=== PATIENT | female | born 1980 | race African-American/Black ===

== ENCOUNTER 2019-12-19 17:41 | Emergency (ER) | payer SELFPAY ==
[2019-12-19] MEDS ORDERED: dexAMETHasone 20 MG/5 ML VIAL IV ONE (19:30)
[2019-12-19] MEDS ORDERED: ASPIRIN 325 MG TAB PO ONE (19:30)
[2019-12-19] MEDS ORDERED: SODIUM CHLORIDE 0.9% 1000 ML 1,000 ML IV ONE (19:30)
[2019-12-19] MEDS ORDERED: BUTALB/ACETAMINOPHEN/CAFFEINE TAB PO ONE (19:47)
[2019-12-19 20:21] LABS: Basophils % (Auto) 0.6 % (0.0-1.8); Eosinophils # (Auto) 0.2 K/mm3 (0.0-0.4); Eosinophils % (Auto) 2.7 % (0.0-4.3); Hematocrit 35.3 % (30.3-42.9); Hemoglobin 12.1 gm/dl (10.1-14.3); Lymphocytes # (Auto) 2.3 K/mm3 (1.2-5.4); Lymphocytes % (Auto) 29.7 % (13.4-35.0); Mean Corpuscular HGB Conc 34 % (30-34); Mean Corpuscular Volume 86 fl (79-97); Monocytes # (Auto) 0.5 K/mm3 (0.0-0.8); Monocytes % (Auto) 6.6 % (0.0-7.3); Platelet Count 229 K/mm3 (140-440); Red Blood Count 4.12 M/mm3 (3.65-5.03); Red Cell Distribution Width 12.6 % (13.2-15.2)
[2019-12-19 20:38] LABS: Alanine Aminotransferase 17 units/L (7-56); Albumin 4.6 g/dL (3.9-5); BUN/Creatinine Ratio 19; Blood Urea Nitrogen 13 mg/dL (7-17); Calcium 9.5 mg/dL (8.4-10.2); Hemolysis Index 2
--- NOTE | 2019-12-19 21:04 | Cat Scan Report ---
CT head/brain wo con INDICATION: headache. TECHNIQUE: Routine CT head without contrast. All CT scans at this location are performed using CT dos e reduction for ALARA by means of automated exposure control. COMPARISON: None. FINDINGS: BRAIN / INTRACRANIAL CONTENTS: No acute hemorrhage, mass effect, midline shift, or hydrocephalus. No appreciable acute large territorial or lacunar infarct. No chronic infarct or focal atrophy. Normal b rain volume and ventricular/sulcal size for age. ORBITS: No significant abnormality of visualized orbits. SINUSES / MASTOIDS: No significant abnormality of visualized sinuses and mastoid air cells. ADDITIONAL FINDINGS: None. IMPRESSION: 1. No acute intracranial abnormality. Signer Name: Kenneth Stovall MD Signed: 12/19/2019 8:59 PM Workstation Name: [id number]
[2019-12-19 21:24] LABS: HCG Qualitative,Urine Negative (Negative)
[2019-12-19 21:26] LABS: Bilirubin,Urine NEG (Negative); Blood,Urine LG (Negative); Color,Urine Straw (Yellow); Protein,Urine <15 mg/dL mg/dL (Negative); Urobilinogen,Urine < 2.0 mg/dL (<2.0); WBC,Urine < 1.0 /HPF (0.0-6.0)
[2019-12-19 21:28] LABS: RBC,Urine > 182.0 /HPF (0.0-6.0)
--- NOTE | 2019-12-19 21:29 | XRay Report ---
CHEST 2 VIEWS INDICATION / CLINICAL INFORMATION: chest pain. COMPARISON: None available. FINDINGS: SUPPORT DEVICES: None. HEART / MEDIASTINUM: No significant abnormality. LUNGS / PLEURA: Mild pulmonary vascular congestion. No overt interstitial pulmonary edema. The lungs are otherwise clear. No pneumothorax. ADDITIONAL FINDINGS: No significant additional findings. IMPRESSION: 1. Mild pulmonary vascular congestion. No other significant finding. Signer Name: Reyna Rosenthal MD Signed: 12/19/2019 9:24 PM Workstation Name: [id number]
[2019-12-19] MEDS ORDERED: POTASSIUM CHLORIDE ER 20 MEQ TAB PO ONE (21:50)
[2019-12-19] MEDS ORDERED: KETOROLAC 30 MG/1 ML INJ IV ONE (21:50)
[2019-12-20] MEDS ORDERED: CYCLOBENZAPRINE 10 MG TAB PO ONE (00:23)
[2019-12-20] MEDS ORDERED: hydrALAZINE 20 MG/1 ML INJ IV ONE (00:23)
[2019-12-20 01:34] VITALS: BP 147/88
--- NOTE | 2019-12-20 02:14 | Emergency Department Report ---
ED Neck Pain/Injury HPI - General Chief Complaint: Neck Pain/Injury Stated Complaint: TINGLE/NECK PAIN/RT EYE Mode of arrival: Ambulatory Limitations: Language Barrier - History of Present Illness Initial Comments: Patient is a 39 yo female with a h/o poorly uncontrolled HTN who presents to the ED with c/o acute onset persistent left lateral neck pain that radiates to the left arm, left shoulder, posterior headache and left chest wall for the last 3 days with persistently elevated blood pressure. Patient states that she was prescribed blood pressure medication that she could not remember and that she does not take the medication because it makes her feel nauseous and lightheaded. Patient states that she stopped taking these medications about 6 months or more ago and ever since her blood pressure has not been well controlled. Patient states that the pain in her neck is constant, sharp and radiates to the left arm. Patient also complains of shortness of breath on exertion but denies dizziness, cough, nausea and vomiting, abdominal pain, syncope, palpitations, change in vision, traumatic injury or heavy lifting, fall, hematochezia, vaginal bleeding, hematemesis, fever and chills. MD Complaint: neck pain, upper back pain, other (headache, left arm pain; headache, chest pain; elevated BP) -: Sudden, days(s) (4) Place: home Radiation: left lateral, head, left shoulder, chest, left upper extremity (left shoulder) Severity: severe, constant Severity scale (0 -10): 8 Quality: sharp, aching Consistency: constant Improves With: none Worsens With: movement of extremity, movement of neck Context: unknown Associated Symptoms: headache, numbness, tingling. denies: weakness, vertigo, difficulty walking, swollen glands, difficulty swallowing, nausea, vomiting Treatments Prior to Arrival: none - Related Data Previous Rx's Medication Instructions Recorded Last Taken Type Naproxen 500 mg PO Q12H PRN #30 tablet 12/20/19 Unknown Rx Spironolactone [Aldactone] 25 mg PO QDAY #30 tablet 12/20/19 Unknown Rx amLODIPine 10 mg PO DAILY #30 tab 12/20/19 Unknown Rx hydrOXYzine PAMOATE [Vistaril] 50 mg PO QHS PRN #30 capsule 12/20/19 Unknown Rx predniSONE [Deltasone] 40 mg PO QDAY #12 tab 12/20/19 Unknown Rx tiZANidine [Zanaflex 4mg TAB] 4 mg PO Q8H PRN #24 tablet 12/20/19 Unknown Rx Allergies Allergy/AdvReac Type Severity Reaction Status Date / Time No Known Allergies Allergy Unverified 12/19/19 17:42 ED Review of Systems ROS: Stated complaint: TINGLE/NECK PAIN/RT EYE Other details as noted in HPI Constitutional: denies: chills, fever Eyes: denies: eye pain, eye discharge, vision change ENT: denies: ear pain, throat pain, congestion Respiratory: shortness of breath. denies: cough, wheezing Cardiovascular: chest pain (left-sided chest pain), dyspnea on exertion. denies: palpitations, syncope Endocrine: no symptoms reported Gastrointestinal: denies: abdominal pain, nausea, vomiting, diarrhea Genitourinary: denies: urgency, dysuria, discharge Musculoskeletal: arthralgia (neck pain, left shoulder and arm pain), myalgia. denies: back pain, joint swelling Skin: denies: rash, lesions Neurological: headache. denies: weakness, paresthesias, confusion, abnormal gait, vertigo Psychiatric: anxiety. denies: depression Hematological/Lymphatic: denies: easy bleeding, easy bruising ED Past Medical Hx - Past Medical History Previous Medical History?: No - Surgical History Past Surgical History?: No - Social History Smoking Status: Never Smoker Substance Use Type: None - Medications Home Medications: Home Medications Medication Instructions Recorded Confirmed Last Taken Type Naproxen 500 mg PO Q12H PRN #30 tablet 12/20/19 Unknown Rx Spironolactone [Aldactone] 25 mg PO QDAY #30 tablet 12/20/19 Unknown Rx amLODIPine 10 mg PO DAILY #30 tab 12/20/19 Unknown Rx hydrOXYzine PAMOATE [Vistaril] 50 mg PO QHS PRN #30 capsule 12/20/19 Unknown Rx predniSONE [Deltasone] 40 mg PO QDAY #12 tab 12/20/19 Unknown Rx tiZANidine [Zanaflex 4mg TAB] 4 mg PO Q8H PRN #24 tablet 12/20/19 Unknown Rx ED Physical Exam - General Limitations: Language Barrier General appearance: alert, in no apparent distress - Head Head exam: Present: atraumatic, normocephalic, normal inspection - Eye Eye exam: Present: normal appearance, PERRL, EOMI Pupils: Present: normal accommodation - ENT ENT exam: Present: normal exam, normal orophraynx, mucous membranes moist, TM's normal bilaterally, normal external ear exam - Neck Neck exam: Present: normal inspection, tenderness (Palpable left lateral c ervical tenderness with limited range of motion due to pain). Absent: meningismus, full ROM, lymphadenopathy, thyromegaly - Respiratory Respiratory exam: Present: normal lung sounds bilaterally, chest wall tenderness (Palpable reproducible left chest wall tenderness). Absent: respiratory distress, wheezes, rales, rhonchi, accessory muscle use, decreased breath sounds - Cardiovascular Cardiovascular Exam: Present: regular rate, normal rhythm, normal heart sounds. Absent: systolic murmur, diastolic murmur, rubs, gallop - GI/Abdominal GI/Abdominal exam: Present: soft, normal bowel sounds. Absent: tenderness, hyperactive bowel sounds - Extremities Exam Extremities exam: Present: normal inspection, full ROM, tenderness (Palpable left shoulder tenderness), normal capillary refill - Back Exam Back exam: Present: normal inspection, full ROM. Absent: tenderness, CVA tenderness (R), CVA tenderness (L), muscle spasm, paraspinal tenderness, vertebral tenderness - Neurological Exam Neurological exam: Present: alert, oriented X3, CN II-XII intact, normal gait, reflexes normal - Psychiatric Psychiatric exam: Present: normal affect, normal mood, anxious - Skin Skin exam: Present: warm, dry, intact, normal color. Absent: rash ED Course Vital Signs 12/19/19 12/19/19 12/19/19 17:49 20:15 21:15 Temperature 98 F Pulse Rate 71 Respiratory 18 15 18 Rate Blood Pressure 191/115 Blood Pressure [Right] O2 Sat by Pulse 100 Oximetry 12/19/19 12/19/19 12/20/19 23:08 23:17 00:44 Temperature 97.9 F Pulse Rate 57 L 65 Respiratory 18 16 Rate Blood Pressure 173/89 Blood Pressure 189/95 [Right] O2 Sat by Pulse 99 Oximetry 12/20/19 01:30 Temperature Pulse Rate 89 Respiratory 18 Rate Blood Pressure Blood Pressure 147/88 [Right] O2 Sat by Pulse 98 Oximetry ED Medical Decision Making - Lab Data Result diagrams: 12/19/19 19:46 12/19/19 19:46 - EKG Data EKG shows normal: sinus rhythm Rate: normal - EKG Data Interpretation: normal EKG 12/20/19 02:25 EKG shows normal sinus rhythm with ventricular rate of [address] or T wave abnormalities. - Radiology Data Radiology results: report reviewed, image reviewed Findings [facility] [address] [place] [address] XRay Report Signed Patient: ABUNDIO MICHAEL MR#: [id number] : 1980 Acct:[id number] Age/Sex: 39 / F ADM Date: 12/19/19 Loc: ED Attending Dr: Ordering Physician: OLIVA SHEN Date of Service: 12/19/19 Procedure(s): XR chest routine 2V Accession Number(s): [id number] cc: OLIVA SHEN Fluoro Time In Minutes: CHEST 2 VIEWS INDICATION / CLINICAL INFORMATION: chest pain. COMPARISON: None available. FINDINGS: SUPPORT DEVICES: None. HEART / MEDIASTINUM: No significant abnormality. LUNGS / PLEURA: Mild pulmonary vascular congestion. No overt interstitial pulmonary edema. The lungs are otherwise clear. No pneumothorax. ADDITIONAL FINDINGS: No significant additional findings. IMPRESSION: 1. Mild pulmonary vascular congestion. No other significant finding. Signer Name: Reyna Rosenthal MD Signed: 12/19/2019 9:24 PM Workstation Name: [id number] Transcribed By: JR Dictated By: Reyna Rosenthal MD Electronically Authenticated By: Reyna Rosenthal MD Signed Date/Time: 12/19/192123 DD/ 22 TD/TT: Findings [facility] [address] [place] [address] Cat Scan Report Signed Patient: ABUNDIO MICHAEL MR#: [id number] : 1980 Acct:[id number] Age/Sex: 39 / F ADM Date: 12/19/19 Loc: ED Attending Dr: Ordering Physician: OLIVA SHEN Date of Service: 12/19/19 Procedure(s): CT head/brain wo con Accession Number(s): [id number] cc: OLIVA SHEN CT head/brain wo con INDICATION: headache. TECHNIQUE: Routine CT head without contrast. All CT scans at this location are performed using CT dose reduction for ALARA by means of automated exposure control. COMPARISON: None. FINDINGS: BRAIN / INTRACRANIAL CONTENTS: No acute hemorrhage, mass effect, midline shift, or hydrocephalus. No appreciable acute large territorial or lacunar infarct. No chronic infarct or focal atrophy. Normal brain volume and ventricular/sulcal size for age. ORBITS: No significant abnormality of visualized orbits. SINUSES / MASTOIDS: No significant abnormality of visualized sinuses and mastoid air cells. ADDITIONAL FINDINGS: None. IMPRESSION: 1. No acute intracranial abnormality. Signer Name: Kenneth Stovall MD Signed: 12/19/2019 8:59 PM Workstation Name: [id number] Transcribed By: YUMIKO Dictated By: Kenneth Stovall MD Electronically Authenticated By: Kenneth Stovall MD Signed Date/Time: 12/19/192058 DD/ 57 TD/TT: - Medical Decision Making This is a 39-year-old female with a history of hypertension who presented to the ED with persistent severe headache, left lateral neck pain that radiates to the left arm and left chest wall with numbness and tingling of left arm with shortness of breath and elevated blood pressure. In the ED, patient is alert and oriented x3 and is not in any distress but hypertensive in triage. Lab test results were reviewed and are all nonactionable including initial and repeat troponin level except BNP of 1256 and mild hypokalemia of 3.4 mmol/L. Urinalysis is unremarkable and head CT scan without contrast shows no acute intracranial abnormalities or hemorrhage. Chest x-ray shows mild pulmonary vascular congestion. No overt interstitial pulmonary edema. The lungs are otherwise clear. No pneumothorax. Patient was treated in the ED for pain, and also treated for hypertension. On reevaluation, patient's blood pressure normalized after the administration of hydralazine. Patient neck pain and left arm pain also significantly improved. Patient was discharged home on pain medications, muscle relaxants as well as blood pressure medication that includes a diuretic. Patient was referred to the kitchen steward, Dr. Felipe who is on-call for further evaluation and follow-up on her BNP. Patient was also referred to the primary care physician for further evaluation. Patient was advised to return to the ED immediately if symptoms get worse. - Differential Diagnosis Cervical radiculopathy; CHF; CAD; Anxiety; Uncontrolled HTN; Muscle strain Critical care attestation.: If time is entered above; I have spent that time in minutes in the direct care of this critically ill patient, excluding procedure time. ED Disposition Clinical Impression: Pulmonary edema, acute, Uncontrolled stage 2 hypertension, Left cervical radiculopathy, Anxiety as acute reaction to exceptional stress Muscle strain of left upper extremity Qualifiers: Encounter type: initial encounter Qualified Code(s): S46.912A - Strain of unspecified muscle, fascia and tendon at shoulder and upper arm level, left arm, initial encounter Disposition: - TO HOME OR SELFCARE Is pt being admited?: No Does the pt Need Aspirin: No Condition: Stable Instructions: Pulmonary Edema (ED), Hypertension (ED), Muscle Strain (ED), Cervical Radiculopathy (ED) Additional Instructions: [facility] con alimentos, ida muchos lquidos y deepthi un seguimiento con dugan mdico de atencin primaria segn lo recomendado, tambin deepthi un seguimiento con el cardilogo para sly evaluacin adicional de dugan edema pulmonar. Regrese al servicio de urgencias de inmediato si los sntomas empeoran. Prescriptions: hydrOXYzine PAMOATE [Vistaril] 50 mg PO QHS PRN #30 capsule PRN Reason: Anxiety Spironolactone [Aldactone] 25 mg PO QDAY #30 tablet amLODIPine 10 mg PO DAILY #30 tab predniSONE [Deltasone] 40 mg PO QDAY #12 tab Naproxen 500 mg PO Q12H PRN #30 tablet PRN Reason: Pain , Severe (7-10) tiZANidine [Zanaflex 4mg TAB] 4 mg PO Q8H PRN #24 tablet PRN Reason: Muscle Spasm Referrals: TIGIST PENN MD [Staff Physician] - 7-10 days ROGE FELIPE [Staff Physician] - 2-3 Days CAREN BARONE MD [Staff Physician] - 3-5 Days Forms: Work/School Release Form(ED) Time of Disposition: 02:36 Print Language: LITHUANIAN
== END 2019-12-20 02:55 | disposition home or self-care (01) ==
LOC: ED 17:41
DX: J81.0 Acute pulmonary edema (principal); M54.12 Radiculopathy, cervical region; I10 Essential (primary) hypertension; F41.8 Other specified anxiety disorders; F43.0 Acute stress reaction; Z79.899 Other long term (current) drug therapy
CPT/HCPCS: 36415; 70450; 71046; 80053; 81001; 81025; 82962; 83880; 84484; 85025; 93005; 93010; 96374; 96375; 99285; J0360; J1100; J1885; J7030